=== PATIENT | male | born 1975 | race Caucasian/White ===

== ENCOUNTER 2022-12-29 18:21 | Emergency (ER) | payer OTHER, SELFPAY ==
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
[2022-12-29 18:30] VITALS: BP 155/79; PULSE 67; RESP 16; TEMP 36.7; O2SAT 100
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
== END 2022-12-29 20:25 | disposition home or self-care (01) ==
PROVIDERS: Emergency Provider Nurse Practitioner Family
DX: S92.424A Nondisplaced fracture of distal phalanx of right great toe, initial encounter for closed fracture (principal); V49.9XXA Car occupant (driver) (passenger) injured in unspecified traffic accident, initial encounter; I10 Essential (primary) hypertension; J45.909 Unspecified asthma, uncomplicated; M79.7 Fibromyalgia
CPT/HCPCS: 71101; 72050; 72072; 73564; 73630; 99214; G0463